=== PATIENT | female | born 1990 | race Caucasian/White ===

== ENCOUNTER 2024-09-07 12:20 | Emergency (ER) | payer OTHER, BC ==
[~2024-09-07] VITALS: Ht 160 cm; Wt 72.6 kg
[2024-09-07 14:21] VITALS: BP 114/74; TEMP 98.4; O2SAT 99
== END 2024-09-07 14:21 | disposition home or self-care (01) ==
LOC: ER 12:28
DX: M54.50 Low back pain, unspecified (principal); M54.2 Cervicalgia; Z60.2 Problems related to living alone; V49.69XA Unspecified car occupant injured in collision with other motor vehicles in traffic accident, initial encounter; Y93.89 Activity, other specified; Y92.488 Other paved roadways as the place of occurrence of the external cause; Y99.8 Other external cause status
CPT/HCPCS: 72050-TC; 72074-TC; 72110-TC; 84703-TC